=== PATIENT | male | born 1955 | race Caucasian/White ===

== ENCOUNTER 2022-09-30 20:47 | Emergency (ER) | payer MEDICARE, MEDICAID ==
[2022-09-30] MEDS ORDERED: ACETAMINOPHEN 325 MG TABLET PO STA (21:00)
--- NOTE | 2022-10-01 00:43 | ED Physician Documentation ---
History of Present Illness - Stated complaint Stated Complaint: EXHAUSTION, HEADACHE - Chief complaint Chief Complaint: General - History obtained from History obtained from: Patient - History of Present Illness Timing: How many days ago (1-2) Pain level max: 0 Pain level now: 0 - Additonal information Additional information: brought to ED by police (not under arrest). Patient is experiencing homelessness. He was meant to take the ferry to [place] but missed the last ferry. Having nowhere to stay and the buses having stopped running by then, he was stranded and cold and thus he called 911. Police brought patient to ED. Patient tells me he feels "completely worn out" and "tired"; he feels this is du e to "not taking care of myself" past few days and "overdoing it", although he is noted to be febrile on ED triage assessment. He has no c/o except fatigue Review of Systems Constitutional: reports: Fever (unaware of fever but febrile when triaged), Fatigue Throat: denies: Sore throat Cardiac: reports: Reviewed and negative Respiratory: reports: Reviewed and negative GI: reports: Reviewed and negative PD PAST MEDICAL HISTORY - Present Medications Home Medications: Ambulatory Orders Medication Instructions Recorded Confirmed Aspirin Chewable [[facility] 81 mg PO DAILY 10/01/22 10/01/22 Aspirin] - Allergies Allergies/Adverse Reactions: Allergies Allergy/AdvReac Type Severity Reaction Status Date / Time No Known Drug Allergies Allergy Verified 09/30/22 21:00 PD ED PE NORMAL - Vitals Vital signs reviewed: Yes - General General: Alert and oriented X 3, No acute distress, Well developed/nourished, Other (NAD. large suitcase and backpack with him. he is slightly unkempt) - HEENT HEENT: Moist mucous membranes - Neck Neck: Supple, no meningeal sign - Cardiac Cardiac: RRR, No murmur - Respiratory Respiratory: No respiratory distress, Clear bilaterally - Abdomen Abdomen: Soft, Non tender Results - Vitals Vitals: Vital Signs - 24 hr 10/01/22 10/01/22 04:37 05:44 Temperature 38.2 C H 36.1 C L Heart Rate 70 70 Respiratory 18 14 Rate Blood Pressure 132/57 H 100/65 O2 Saturation 98 97 Oxygen O2 Source Room air - Labs Labs: Laboratory Tests 10/01/22 04:33 Nasal Adenovirus (PCR) NOT DETECTED Nasal B. parapertussis DNA (PCR) NOT DETECTED Nasal Coronavir 229E PCR NOT DETECTED Nasal Coronavir HKU1 PCR NOT DETECTED Nasal Coronavir NL63 PCR NOT DETECTED Nasal Coronavir OC43 PCR NOT DETECTED Nasal Enterovir/Rhinovir PCR NOT DETECTED Nasal Influenza B PCR NOT DETECTED Nasal Influenza A PCR NOT DETECTED Nasal Parainfluen 1 PCR NOT DETECTED Nasal Parainfluen 2 PCR NOT DETECTED Nasal Parainfluen 3 PCR NOT DETECTED Nasal Parainfluen 4 PCR NOT DETECTED Nasal RSV (PCR) NOT DETECTED Nasal B.pertussis DNA PCR NOT DETECTED Nasal C.pneumoniae (PCR) NOT DETECTED Kali Human Metapneumo PCR NOT DETECTED Nasal M.pneumoniae (PCR) NOT DETECTED Nasal SARS-CoV-2 (PCR) DETECTED A PD MEDICAL DECISION MAKING - ED course Complexity details: considered differential, d/w patient ED course: febrile on triage , only c/o fatigue (patient is only in ED because he missed [id number] and was thus stranded at [employer] [place] in the cold, brought to ED by police). Nasal swab for respiratory PCR panel is positive for COVID. We discussed option for Paxlovid, which I recommend to him and he would like to take this medication. Paxlovid kit is provided with instructions. Return precautions d/w patient as well. Departure - Departure Disposition: 01 Home, Self Care Clinical Impression: COVID-19 Condition: Good Instructions: ED Viral Syndrome Follow-Up: FABI CAMACHO MD [Primary Care Provider] - Comments: You have tested positive for COVID-19. Follow the CDC guidelines regarding quarantine procedure (can be found by typing "CDC covid quarantine" into [employer]). The CDC website also has information regarding when you can get booster shots for COVID if you have been diagnosed with active COVID infection. You have been provided antiviral medications in a kit; take these medications as per the instructions that are provided with the kit. These medications should decrease the length of symptoms as well as make it less likely that you become sicker with COVID Discharge Date/Time: 10/01/22 05:55
[2022-10-01] MEDS ORDERED: ACETAMINOPHEN 325 MG TABLET PO STA (04:34)
[2022-10-01 05:43] LABS: CORONAVIRUS 229E-RESP PCR NOT DETECTED; CORONAVIRUS HKU1-RESP PCR NOT DETECTED; CORONAVIRUS NL63-RESP PCR NOT DETECTED; CORONAVIRUS OC43-RESP PCR NOT DETECTED; HUMAN METAPNEUMOVIRUS NOT DETECTED; RHINOVIRUS/ENTEROVIRUS NOT DETECTED
[2022-10-01 05:44] LABS: B. PARAPERTUSSIS- RESP PCR PAN NOT DETECTED; B. PERTUSSIS- RESP PCR PANEL NOT DETECTED; C. PNEUMONIAE- RESP PCR PANEL NOT DETECTED; INFLUENZA A- RESP PCR PANEL NOT DETECTED; INFLUENZA B - RESP PCR PANEL NOT DETECTED; M. PNEUMONIAE- RESP PCR PANEL NOT DETECTED; PARAINFLUENZA VIRUS 1 NOT DETECTED; PARAINFLUENZA VIRUS 2 NOT DETECTED; PARAINFLUENZA VIRUS 3 NOT DETECTED; PARAINFLUENZA VIRUS 4 NOT DETECTED; RSV- RESP PCR PANEL NOT DETECTED
[2022-10-01 05:45] VITALS: BP 100/65
[2022-10-01 05:46] LABS: SARS-CoV-2 -RESP PCR PANEL DETECTED
[2022-10-01] MEDS ORDERED: NIRMATRELVIR/RITONAVIR PREPACK PO STA (05:47)
== END 2022-10-01 05:55 | disposition home or self-care (01) ==
LOC: ED 20:47
DX: U07.1 COVID-19 (principal); R53.83 Other fatigue; Z59.00 Homelessness unspecified; Z79.82 Long term (current) use of aspirin
CPT/HCPCS: 87633; 99282; 99283; A9270; J3490